=== PATIENT | female | born 1980 | race Caucasian/White ===

== ENCOUNTER → 2016-07-31 | Outpatient (CLI) | payer BC | LOC: KOH-I 08:04 | DX: M79.671 Pain in right foot (principal) | CPT/HCPCS: 73630 ==

== ENCOUNTER → 2016-07-31 | Outpatient (CLI) | payer BC | LOC: RAD 12:39 | DX: M79.672 Pain in left foot (principal); M79.671 Pain in right foot | CPT/HCPCS: 73630 ==